=== PATIENT | male | born 1960 | race Hispanic/Latino ===

== ENCOUNTER 2019-10-09 11:54 | Observation (INO) | payer OTHER ==
[2019-10-06 16:27] VITALS: BP 156/78
[2019-10-06 16:38] LABS: BASOPHILS % (AUTO) 1.2 % (0.0-5.0); EOSINOPHILS % (AUTO) 2.2 % (0.0-8.0); HEMATOCRIT 39.5 % (42-54); LYMPHOCYTES % (AUTO) 19.3 % (21.0-51.0); MEAN CORPUSCULAR HEMOGLOBIN 29.4 pg (27.0-33.0); MEAN CORPUSCULAR VOLUME 88.8 fL (79-99); MONOCYTES % (AUTO) 9.5 % (3.0-13.0); NEUTROPHILS % (AUTO) 67.8 % (40.0-77.0); NUCLEATED RED BLOOD CELLS 0.1 % (0.0-0.19); PLATELET COUNT (AUTO) 116 K/uL (130-400); RED BLOOD CELL COUNT(AUTO) 4.45 MIL/uL (4.50-6.20); RED CELL DISTRIBUTION WIDTH 15.1 % (11.0-15.5); WHITE BLOOD COUNT (AUTO) 4.2 K/uL (4.8-10.8)
[2019-10-06 16:43] LABS: APPEARANCE,URINE CLEAR (CLEAR); BILIRUBIN,URINE NEGATIVE (NEGATIVE); COLOR,URINE YELLOW (YELLOW); GLUCOSE, URINE (UA) >=1000 mg/dL (NEGATIVE); KETONES,URINE NEGATIVE (NEGATIVE); LEUKOCYTE ESTERASE ,URINE NEGATIVE (NEGATIVE); NITRATE,URINE NEGATIVE (NEGATIVE); OCCULT BLOOD,URINE TRACE-INTACT (NEGATIVE); PROTEIN,URINE >=300 mg/dL (NEGATIVE); UROBILINOGEN,URINE 0.2 mg/dL (0.2-1.0)
[2019-10-06 16:54] LABS: INR 0.96 (0.85-1.15); PARTIAL THROMBOPLASTIN TIME 30.6 SEC (26.3-35.5); PROTHROMBIN TIME 10.1 SEC (9.6-11.6)
[2019-10-06 16:56] LABS: CREATININE 8.4 mg/dL (0.5-1.5)
[2019-10-06 17:23] LABS: BACTERIA,URINE Rare /HPF (None Seen); RBC,URINE 0-1 /HPF (0-1); WBC,URINE 0-1 /HPF (0-1)
[2019-10-06 17:24] LABS: SQUAMOUS EPITHELIAL CELL,UR None Seen /HPF (0-2)
--- NOTE | 2019-10-08 12:00 | NUR ---
Called Gadiel Tinoco and notified him if na of 133 and cl of 95, no new orders, okay to proceed. Addendum: 10/08/19 at 1246 by JANET HAILE RN RN wrong patient , no correct account
--- NOTE | 2019-10-08 12:57 | NUR ---
Called Gadiel Thomas to advise him that pt urine has protien, glucose , trace of blood , plt morphology shows plt clumps present, large plts present , Bun 62, metal loader 8.4 (pt peritoneal dialysis pt with gfr of 7) and chest xray shows right pleural fluid. Per Gadiel Thomas okay to proceed no new orders.
[2019-10-09] VITALS (9 sets, daily range): BP systolic 144–175; BP diastolic 79–92
[~2019-10-09] VITALS: Ht 175.3 cm; Wt 65.8 kg
[~2019-10-09 11:54] MED LIST: SODIUM CHLORIDE 0.9% 1000ML 1,000 ML IV ONE
[2019-10-09] MEDS ORDERED: TRAZ-185 PO (13:53)
[2019-10-09] MEDS ORDERED: HYDR-3421 PO (13:53)
[2019-10-09] MEDS ORDERED: INSU100I26 SQ (13:53)
[2019-10-09] MEDS ORDERED: FURO20TA4 PO (13:53)
[2019-10-09] MEDS ORDERED: RENAVITE PO (13:53)
[2019-10-09] MEDS ORDERED: NIFE60TA71 PO (13:53)
[2019-10-09] MEDS ORDERED: ZOLP5TAB8 PO (13:53)
[2019-10-09] MEDS ORDERED: OMEP20TA25 PO (13:53)
[2019-10-09] MEDS ORDERED: SEVE800T27 PO (13:53)
[2019-10-09] MEDS ORDERED: LOSA100T58 PO (13:53)
[2019-10-09] MEDS ORDERED: AMLO10TA7 PO (13:53)
[2019-10-09] MEDS ORDERED: SIMV-46 PO (13:53)
[2019-10-09] MEDS ORDERED: CEPH500T PO (13:53)
[2019-10-09] MEDS ORDERED: IODIXANOL 320 MG/ML 100 ML VIAL ONE (15:15)
[2019-10-09] MEDS ORDERED: FENTANYL CITRATE PF 50 MCG/1 ML 2ML VIAL ONE (15:15)
[2019-10-09] MEDS ORDERED: HEPARIN SODIUM 1000UNIT/ML 10ML VIAL ONE (15:15)
[2019-10-09] MEDS ORDERED: NITROGLYCERIN 5 MG/ML 10 ML VIAL IV ONE (15:15)
[2019-10-09] MEDS ORDERED: LIDOCAINE HCL 2% 20ML ONE (15:15)
[2019-10-09] MEDS ORDERED: MIDAZOLAM HCL 1 MG/ML 2ML VIAL ONE (15:15)
[2019-10-09] MEDS ORDERED: DEXTROSE 50%-WATER 50 ML DISP.SYRIN IV ONE (16:09)
[2019-10-09] MEDS ORDERED: LABETALOL 20 MG/4 ML DISP.SYRIN IV ONE (16:53)
[2019-10-09] MEDS ORDERED: CLOPIDOGREL BISULFATE 300 MG TAB ONE (17:03)
[2019-10-09] MEDS ORDERED: ASPIRIN 81MG TAB.CHEW ONE ×2 (17:03→17:05)
[2019-10-09] MEDS ORDERED: GLUCAGON 1MG KIT 1 MG ML IM PRN (17:15)
[2019-10-09] MEDS ORDERED: DEXTROSE 50%-WATER 50 ML DISP.SYRIN IV PRN (17:15)
[2019-10-09] MEDS ORDERED: ACETAMINOPHEN-CODEINE 300/30MG TAB PO PRN (17:15)
[2019-10-09] MEDS ORDERED: HYDRALAZINE HCL 20 MG/ML VIAL IV PRN (17:15)
[2019-10-09] MEDS ORDERED: METOPROLOL TARTRATE 1 MG/ML 5ML VIAL IV PRN (17:15)
[2019-10-09] MEDS ORDERED: PHARMACY COMMUNICATION MISC SCH (20:00)
[2019-10-09] MEDS: INSULIN HUMULIN R 100 UNIT/ML 3ML SQ SCH (20:19)
[2019-10-09] MEDS ORDERED: ZOLPIDEM TARTRATE 5 MG TAB PO SCH (21:00)
[2019-10-09] MEDS ORDERED: SIMVASTATIN 20 MG TABLET PO SCH (21:00)
[2019-10-09] MEDS ORDERED: TRAZODONE HCL 50 MG TAB PO SCH (21:00)
[2019-10-09] MEDS ORDERED: LOSARTAN 100 MG TABLET PO SCH (21:00)
[2019-10-09] MEDS ORDERED: HYDROXYZINE HCL 25 MG TABLET PO SCH (21:00)
[2019-10-09] MEDS: SEVELAMER HCL 800 MG TABLET PO SCH (21:11)
[2019-10-09] MEDS: CEPHALEXIN 500 MG CAPSULE PO SCH (21:11)
[2019-10-10] VITALS: BP 151/81
[2019-10-10 04:00] VITALS: BP 153/84
[2019-10-10 05:05] LABS: HEMATOCRIT 33.4 % (42-54); MEAN CORPUSCULAR HEMOGLOBIN 29.4 pg (27.0-33.0); MEAN CORPUSCULAR HGB CONC 33.4 g/dL (32.0-36.0); MEAN CORPUSCULAR VOLUME 88.1 fL (79-99); NUCLEATED RED BLOOD CELLS 0.1 % (0.0-0.19); PLATELET COUNT (AUTO) 105 K/uL (130-400); RED BLOOD CELL COUNT(AUTO) 3.79 MIL/uL (4.50-6.20); RED CELL DISTRIBUTION WIDTH 15.2 % (11.0-15.5); WHITE BLOOD COUNT (AUTO) 3.7 K/uL (4.8-10.8)
[2019-10-10 05:37] LABS: POTASSIUM 5.2 mmol/L (3.5-5.1)
[2019-10-10 05:40] LABS: CREATININE 8.9 mg/dL (0.5-1.5)
[2019-10-10] MEDS: INSULIN HUMULIN R 100 UNIT/ML 3ML SQ SCH ×2 (06:24→11:45)
--- NOTE | 2019-10-10 07:30 | NUR ---
pt was noted to have blood on the front of his gown, a clot seems to have oozed out from under current dressing; i removed the optifoam cover and a small amount of blood oozing is noted; i folded and placed several clean 4x4 gauze on right groin site and clear opsite dressing and made it tight for a pressure dressing; will cont to monitor.
[2019-10-10 08:00] VITALS: BP 178/87
[2019-10-10] MEDS: SEVELAMER HCL 800 MG TABLET PO SCH ×2 (08:32→11:43)
[2019-10-10] MEDS: CEPHALEXIN 500 MG CAPSULE PO SCH (08:32)
[2019-10-10] MEDS ORDERED: FUROSEMIDE 20 MG TABLET PO SCH (09:00)
[2019-10-10] MEDS ORDERED: NIFEDIPINE ER 30 MG TAB PO SCH (09:00)
[2019-10-10] MEDS ORDERED: AMLODIPINE BESYLATE 5 MG TAB PO SCH (09:00)
[2019-10-10] MEDS ORDERED: PANTOPRAZOLE SODIUM 40 MG TABLET.DR PO SCH (09:00)
[2019-10-10] MEDS ORDERED: INSULIN GLARGINE 100 UNITS/ML 10 ML VIAL SQ SCH (09:00)
[2019-10-10] MEDS ORDERED: FOLIC ACID/VITAMIN B COMP W-C 1 MG CAP/TAB PO SCH (09:00)
[2019-10-10] MEDS ORDERED: CLOPIDOGREL BISULFATE 75 MG TAB PO SCH (09:00)
--- NOTE | 2019-10-10 09:00 | NUR ---
pt has a 1/4 of the gauze pressure dressing i applied w/ bloody drainage on it; i have spoken to dr Sandhya Cochran on the phone and he stated to hold d/c till he can come see the patient and assess. pt informed of this and is in agreement.
--- NOTE | 2019-10-10 10:15 | NUR ---
stay dry dressing applied to right groin to stop bleeding; pt did have a small amount of oozing noted when dressings changed; pt instructed on bedrest and limited activity for a few days and if large amount of bleeding noted to report to md or go to ed; pt stated understanding of all instructions.
[2019-10-10 11:38] VITALS: BP 163/79
--- NOTE | 2019-10-10 12:09 | NUR ---
pt and stated understanding of all d/c instructions for after care for balloning and stenting and use of new meds plavix and aspirin; dressing to right groin remains clean dry and intact; i have discussed with pt how to watch it and home and reinforce if necessary and to report to md excessive drainage, i have also discussed limiting activity for 5 days and calling Saturday for follow up's w/ Dimas and pcp. iv access removed pt taken downstairs via wheelchair.
== END 2019-10-10 12:15 | disposition home or self-care (01) ==
LOC: DAH 11:54 → 4BH 11:55 → DAH 17:05
PROVIDERS: ADMIT Internal Medicine Cardiovascular Disease; ATTEND Internal Medicine Cardiovascular Disease
DX: E11.51 Type 2 diabetes mellitus with diabetic peripheral angiopathy without gangrene (principal); I87.2 Venous insufficiency (chronic) (peripheral); E11.22 Type 2 diabetes mellitus with diabetic chronic kidney disease; E11.21 Type 2 diabetes mellitus with diabetic nephropathy; N18.6 End stage renal disease; E11.40 Type 2 diabetes mellitus with diabetic neuropathy, unspecified; I25.10 Atherosclerotic heart disease of native coronary artery without angina pectoris; Z79.899 Other long term (current) drug therapy; Z95.828 Presence of other vascular implants and grafts; Z99.2 Dependence on renal dialysis
CPT/HCPCS: 36415 ×2; 37226; 71045; 75630; 75774; 80048 ×2; 81001; 82948 ×6; 85025; 85027; 85610; 85730; 93005; 96372; A4215; A4216; A4221; A4222; A4223 ×3; A4606; A4663; C1725; C1760; C1769 ×2; C1874; C1887; C1893; C1894 ×2; G0378 ×19; J1644 ×2; J1815; J2250; J3010; J3490 ×2; J7030; J7070; Q9967; 75716; 99156; 99157

== ENCOUNTER 2019-12-21 06:08 | Observation (INO) | payer MEDICARE ==
[2019-12-17 13:35] LABS: BASOPHILS % (AUTO) 1.1 % (0.0-5.0); EOSINOPHILS % (AUTO) 4.2 % (0.0-8.0); HEMATOCRIT 40.3 % (42-54); LYMPHOCYTES % (AUTO) 13.4 % (21.0-51.0); MEAN CORPUSCULAR HEMOGLOBIN 28.2 pg (27.0-33.0); MEAN CORPUSCULAR HGB CONC 30.8 g/dL (32.0-36.0); MEAN CORPUSCULAR VOLUME 91.6 fL (79-99); NEUTROPHILS % (AUTO) 71.9 % (40.0-77.0); PLATELET COUNT (AUTO) 124 K/uL (130-400); RED CELL DISTRIBUTION WIDTH 15.5 % (11.0-15.5); WHITE BLOOD COUNT (AUTO) 4.8 K/uL (4.8-10.8)
[2019-12-17 13:45] LABS: PARTIAL THROMBOPLASTIN TIME 31.3 SEC (26.3-35.5); PROTHROMBIN TIME 10.5 SEC (9.6-11.6)
[2019-12-17 13:46] LABS: POTASSIUM 5.5 mmol/L (3.5-5.1)
[2019-12-17 13:48] VITALS: BP 152/84
[2019-12-17 13:48] LABS: CREATININE 10.1 mg/dL (0.5-1.5)
--- NOTE | 2019-12-17 16:45 | NUR ---
RE: ABNORMAL LABS CALLED [facility] AND REPORTED ABNORMAL XRAY (SMALL RIGHT PLEURAL EFFUSION). NO NEW ORDERS RECEIVED.
--- NOTE | 2019-12-17 16:45 | NUR ---
RE: ABNORMAL LABS CALLED [facility] AND INFORMED HIM OF PATIENT'S LABS BUN 80, CREAT 10.1, HGB 12.4, HCT 40.3, K 5.5, CA 7.2. PER CATHRYN, FAX THE LAB RESULT TO PATIENT'S WEB PRODUCTION ARTIST AND CALL IN PRESCRIPTION FOR KAYEXALATE TO THE PHARMACY FOR PATIENT TO SALES PROMOTION MANAGER, REPEAT BMP IN AM OF PROCEDURE.
--- NOTE | 2019-12-17 17:00 | NUR ---
RE: PRESCRIPTION CALLED [facility] IN [place] AND LEFT MESSAGE/VOICE MAIL FOR PRESCRIPTION FOR KAYEXELATE FOR PATIENT
--- NOTE | 2019-12-18 13:00 | NUR ---
LABS (BMP/CBC) FAXED TO DR GARCIA OFFICE FOR REVIEW ([phone])
--- NOTE | 2019-12-18 13:15 | NUR ---
RE: PRESCRIPTION CALLED PATIENT AND LEFT MESSAGE TO INFORM HIM THAT KAYEXELATE WAS CALLED INTO [facility] FOR HIM
[~2019-12-21] VITALS: Ht 172.7 cm; Wt 68.3 kg
[2019-12-21] VITALS (15 sets, daily range): BP systolic 141–173; BP diastolic 50–88
[~2019-12-21 06:08] MED LIST changes: +AEC81 PO; +AMLO10TA7 PO; +CALC0.253 PO; +CLOP75TA32 PO; +FURO20TA4 PO; +HYDR-3421 PO; +INSU100I26 SQ; +IRON1CAP PO; +LOSA100T58 PO; +OMEP40CA13 PO; +RENAVITE PO; +SEVE800T27 PO; +SIMV-46 PO; -SODIUM CHLORIDE 0.9% 1000ML 1,000 ML IV ONE; +SODIUM CHLORIDE 0.9% 500ML 500 ML IV SCH; +TRAZ-185 PO
[2019-12-21 06:56] LABS: POTASSIUM 4.3 mmol/L (3.5-5.1)
[2019-12-21 07:03] LABS: CREATININE 9.3 mg/dL (0.5-1.5)
[2019-12-21 07:30] LABS: APPEARANCE,URINE CLEAR (CLEAR); BILIRUBIN,URINE NEGATIVE (NEGATIVE); COLOR,URINE YELLOW (YELLOW); GLUCOSE, URINE (UA) 500 mg/dL (NEGATIVE); KETONES,URINE NEGATIVE (NEGATIVE); LEUKOCYTE ESTERASE ,URINE NEGATIVE (NEGATIVE); NITRATE,URINE NEGATIVE (NEGATIVE); OCCULT BLOOD,URINE TRACE-INTACT (NEGATIVE); PH,URINE 7.5 (5.0-8.0); PROTEIN,URINE 100 mg/dL (NEGATIVE); UROBILINOGEN,URINE 0.2 mg/dL (0.2-1.0)
[2019-12-21 07:48] LABS: BACTERIA,URINE Rare /HPF (None Seen); SQUAMOUS EPITHELIAL CELL,UR Rare /HPF (0-2); WBC,URINE 0-1 /HPF (0-1)
[2019-12-21] MEDS ORDERED: NITROGLYCERIN 2 MG/VIAL VIAL IV ONE (08:00)
[2019-12-21] MEDS ORDERED: HEPARIN SODIUM 1000UNIT/ML 10ML VIAL ONE (08:00)
[2019-12-21] MEDS ORDERED: IODIXANOL 320 MG/ML 100 ML VIAL ONE (08:01)
[2019-12-21] MEDS ORDERED: LIDOCAINE HCL 2% 20ML ONE (08:01)
[2019-12-21] MEDS ORDERED: FENTANYL CITRATE PF 50 MCG/1 ML 2ML VIAL ONE (08:19)
[2019-12-21] MEDS ORDERED: MIDAZOLAM HCL 1 MG/ML 2ML VIAL ONE (08:19)
[2019-12-21] MEDS: AMLODIPINE BESYLATE 5 MG TAB PO SCH (09:00)
[2019-12-21] MEDS ORDERED: GLUCAGON 1MG KIT 1 MG ML IM PRN (09:15)
[2019-12-21] MEDS ORDERED: DEXTROSE 50%-WATER 50 ML DISP.SYRIN IV PRN (09:15)
[2019-12-21] MEDS ORDERED: HYDRALAZINE HCL 20 MG/ML VIAL IV PRN (09:15)
[2019-12-21] MEDS ORDERED: NITROGLYCERIN 0.4 MG SL TAB SL PRN (09:15)
[2019-12-21] MEDS: FOLIC ACID/VITAMIN B COMP W-C 1 MG CAP/TAB PO SCH ×2 (09:29→20:33)
[2019-12-21] MEDS ORDERED: TRAZODONE HCL 50 MG TAB PO PRN (09:30)
[2019-12-21] MEDS ORDERED: CALCITRIOL 0.25 MCG CAPSULE PO SCH (09:30)
[2019-12-21] MEDS: PANTOPRAZOLE SODIUM 40 MG TABLET.DR PO SCH (09:30)
[2019-12-21] MEDS: FE FUMARATE/FA/MV, MIN COMB#15 1 TAB PO SCH (09:31)
[2019-12-21] MEDS ORDERED: ATROPINE SULFATE 0.1 MG/ML 10 ML SYG IVP ONE (11:10)
[2019-12-21] MEDS: INSULIN HUMULIN R 100 UNIT/ML 3ML SQ SCH ×3 (11:30→20:48)
[2019-12-21 12:46] LABS: HEMATOCRIT 36.2 % (42-54)
--- NOTE | 2019-12-21 14:51 | NUR ---
IR/SCHEDULING SPOKE TO JENISE IN IR- STATED IR MD WILL DO PROCEDURE IN AM
[2019-12-21] MEDS ORDERED: LOPERAMIDE 1 MG/7.5 ML UDCUP PO PRN (15:30)
[2019-12-21] MEDS ORDERED: LOPERAMIDE HCL 2 MG CAP PO PRN (15:45)
[2019-12-21] MEDS: SEVELAMER HCL 800 MG TABLET PO SCH ×2 (17:39→20:35)
[2019-12-21] MEDS: CLOPIDOGREL BISULFATE 75 MG TAB PO SCH ×2 (20:36→23:53)
--- NOTE | 2019-12-21 20:37 | NUR ---
PLAVIX PLAVIX NOT GIVEN PT ANGELA BE GOING FOR PROCEDURE IN AM Addendum: 12/21/19 at 5313 by MARLON CUELLAR RN RN wrong pt-plavix given s/p stent
--- NOTE | 2019-12-21 20:43 | NUR ---
TERESA Sagastume Rn from IR called and said pt is going for US guided pseudoaneurysm repair at 0800 tomorrow.
[2019-12-21] MEDS ORDERED: SIMVASTATIN 20 MG TABLET PO SCH (21:00)
[2019-12-21] MEDS ORDERED: HYDROXYZINE HCL 25 MG TABLET PO SCH (21:00)
[2019-12-21] MEDS ORDERED: LOSARTAN 100 MG TABLET PO SCH (21:00)
--- NOTE | 2019-12-21 23:57 | NUR ---
BATH Pt bathed per director sales and trade marketing.
[2019-12-22 00:07] VITALS: BP 139/66
--- NOTE | 2019-12-22 00:39 | NUR ---
ANXIOUS Pt awake,sitting up on a chair,states he's anxious about the procedure in am.
[2019-12-22 03:52] VITALS: BP 137/71
[2019-12-22] MEDS: PANTOPRAZOLE SODIUM 40 MG TABLET.DR PO SCH (05:14)
[2019-12-22] MEDS: INSULIN HUMULIN R 100 UNIT/ML 3ML SQ SCH ×2 (05:51→11:30)
--- NOTE | 2019-12-22 05:52 | NUR ---
SLEEP Pt appears to slept fairly,eyes closed.Respirations even and unlabored.
[2019-12-22 08:24] VITALS: BP 151/88
[2019-12-22] MEDS: AMLODIPINE BESYLATE 5 MG TAB PO SCH (08:54)
[2019-12-22] MEDS: FOLIC ACID/VITAMIN B COMP W-C 1 MG CAP/TAB PO SCH (08:54)
[2019-12-22] MEDS: SEVELAMER HCL 800 MG TABLET PO SCH ×2 (08:55→08:59)
[2019-12-22] MEDS: FE FUMARATE/FA/MV, MIN COMB#15 1 TAB PO SCH (08:55)
[2019-12-22] MEDS ORDERED: ASPIRIN 81 MG EC TAB PO SCH (09:00)
[2019-12-22] MEDS ORDERED: FUROSEMIDE 20 MG TABLET PO SCH (09:00)
--- NOTE | 2019-12-22 09:43 | NUR ---
PROCEDURE PATIENT SCHEDULED FOR RT GROIN PSEUDO ANEURYSM REPAIR WITH THROMBIN INJECTION. NO CURRENT IMAGES TAKEN AND DR Fede CHARLES NOTIFIED. STAT RT GROIN SOFT TISSUE ULTRASOUND ORDERED AT 0930 AND RESULTED AT 0945. THROMBOSED RT GROIN PSEUDO ANEURYSM WITH NO FLOW SEEN. DR Fede PACE NOTIFIED WITH RESULTS. NO FURTHER INTERVENTION REQUIRED AND PROCEDURE CANCELLED. PROCEDURE OUTCOME REPORTED TO WARREN LAN.
[2019-12-22 10:06] LABS: POTASSIUM 5.9 mmol/L (3.5-5.1)
[2019-12-22 10:09] LABS: CREATININE 10.7 mg/dL (0.5-1.5)
[2019-12-22] MEDS ORDERED: SODIUM POLYSTYRENE SULFONATE 15 GM/60 ML ML PO SCH (10:30)
[2019-12-22] MEDS ORDERED: SODIUM POLYSTYRENE SULFONATE 15 GM/60 ML ML ONE (10:46)
[2019-12-22 10:59] VITALS: BP 144/85
--- NOTE | 2019-12-22 14:46 | NUR ---
2530 patient signed SOTELO Letter.I faxed SOTELO Letter to [phone] and placed in chart under consent tab
[2019-12-23] MEDS ORDERED: INSULIN GLARGINE 100 UNITS/ML 10 ML VIAL SQ SCH (09:00)
== END 2019-12-22 12:54 | disposition home or self-care (01) ==
LOC: DAH 06:08 → INTOOBSV 06:09 → DAH 06:09 → DAHIP 06:09 → 4DH 13:33
PROVIDERS: ADMIT Internal Medicine; ATTEND Internal Medicine
DX: E11.51 Type 2 diabetes mellitus with diabetic peripheral angiopathy without gangrene (principal); I70.201 Unspecified atherosclerosis of native arteries of extremities, right leg; I87.2 Venous insufficiency (chronic) (peripheral); R19.09 Other intra-abdominal and pelvic swelling, mass and lump; M79.89 Other specified soft tissue disorders; E11.22 Type 2 diabetes mellitus with diabetic chronic kidney disease; N18.6 End stage renal disease; I25.10 Atherosclerotic heart disease of native coronary artery without angina pectoris; I72.8 Aneurysm of other specified arteries; Z99.2 Dependence on renal dialysis
CPT/HCPCS: 36415 ×3; 37224; 71045; 75716; 75774; 76882; 80048 ×3; 81001; 82948 ×5; 85014; 85018; 85025; 85347; 85610; 85730; 93005; 96372; A4215; A4216; A4221; A4222; A4223 ×3; A4606; A4663; C1725; C1769 ×2; C1887; C1893; C1894 ×2; G0378 ×20; J1644 ×2; J1815; J2250; J3010; J3490 ×2; Q9967; 99156; 99157; J0461

== ENCOUNTER → 2020-02-26 | Outpatient (CLI) | payer MEDICARE ==
[~2020-02-26] MED LIST changes: -SODIUM CHLORIDE 0.9% 500ML 500 ML IV SCH
== END | disposition home or self-care (01) ==
LOC: SHCH 12:05
PROVIDERS: ATTEND Internal Medicine Cardiovascular Disease
DX: I73.9 Peripheral vascular disease, unspecified (principal)
CPT/HCPCS: 93925

== ENCOUNTER 2020-03-17 05:48 | Day surgery (SDC) | payer MEDICARE ==
[2020-03-17] VITALS (19 sets, daily range): BP systolic 124–174; BP diastolic 67–87
[~2020-03-17 05:48] MED LIST changes: -SEVE800T27 PO
[2020-03-17 06:23] LABS: BASOPHILS % (AUTO) 0.6 % (0.0-5.0); EOSINOPHILS % (AUTO) 1.8 % (0.0-8.0); HEMATOCRIT 36.4 % (42-54); LYMPHOCYTES % (AUTO) 16.2 % (21.0-51.0); MEAN CORPUSCULAR HEMOGLOBIN 29.8 pg (27.0-33.0); MEAN CORPUSCULAR HGB CONC 31.6 g/dL (32.0-36.0); MEAN CORPUSCULAR VOLUME 94.3 fL (79-99); MONOCYTES % (AUTO) 9.4 % (3.0-13.0); NEUTROPHILS % (AUTO) 71.8 % (40.0-77.0); PLATELET COUNT (AUTO) 104 K/uL (130-400); RED BLOOD CELL COUNT(AUTO) 3.86 MIL/uL (4.50-6.20)
--- NOTE | 2020-03-17 06:25 | NUR ---
PRE-PROCEDURE RECEIVED FROM HOME TO DAY PT 8 FOR SCHEDULED PROCEDURE WITH DR. ORELLANA. PT AWAKE IN NO ACUTE DISTRESS. CONNECTED TO CONTINUOUS CARDIOPULMONARY MONITORING. C/O PAIN TO RIGHT LOWER EXTREMITY 4/10, BUT REPORTS HE HAS HAD PAIN FOR THE PAST 3 WEEKS MORE SEVERE WHEN WALKING. PT DOES PERITONEAL DIALYSIS FOR 8 HOURS DURING THE NIGHT. MULTIPLE WOUNDS TO RLE WITH OPEN WOUND TO ANTERIOR PART OF FOOT/DRESSING IN PLACE. PER PT HE HAS BEEN TAKING ANTIBIOTICS PRESCRIBED BY DIALYSIS MD.
[2020-03-17 06:39] LABS: INR 1.02 (0.85-1.15); PARTIAL THROMBOPLASTIN TIME 37.7 SEC (26.3-35.5); POTASSIUM 4.9 mmol/L (3.5-5.1)
[2020-03-17 06:44] LABS: APPEARANCE,URINE Clear (CLEAR); BILIRUBIN,URINE Negative (NEGATIVE); COLOR,URINE Yellow (YELLOW); GLUCOSE, URINE (UA) TRACE mg/dL (NEGATIVE); KETONES,URINE Negative (NEGATIVE); LEUKOCYTE ESTERASE ,URINE Negative (NEGATIVE); NITRATE,URINE Negative (NEGATIVE); OCCULT BLOOD,URINE Negative (NEGATIVE); PH,URINE 8.5 (5.0-8.0); PROTEIN,URINE 300 mg/dL (NEGATIVE); UROBILINOGEN,URINE 0.2 mg/dL (0.2-1.0)
[2020-03-17 06:57] LABS: BACTERIA,URINE Rare /HPF (None Seen); SQUAMOUS EPITHELIAL CELL,UR Rare /HPF (0-2); WBC,URINE 0-1 /HPF (0-1)
[2020-03-17 06:57] LABS: CREATININE 12.6 mg/dL (0.5-1.5)
[2020-03-17] MEDS ORDERED: IODIXANOL 320 MG/ML 100 ML VIAL ONE (07:14)
[2020-03-17] MEDS ORDERED: NITROGLYCERIN 2 MG/VIAL VIAL IV ONE (07:14)
[2020-03-17] MEDS ORDERED: HEPARIN SODIUM 1000UNIT/ML 10ML VIAL ONE (07:14)
[2020-03-17] MEDS ORDERED: FENTANYL CITRATE PF 50 MCG/1 ML 2ML VIAL ONE (07:15)
[2020-03-17] MEDS ORDERED: MIDAZOLAM HCL 1 MG/ML 2ML VIAL ONE (07:15)
[2020-03-17] MEDS ORDERED: LIDOCAINE HCL 2% 20ML ONE (07:16)
--- NOTE | 2020-03-17 07:25 | NUR ---
PROCEDURE TRANSFERRED TO FOREST AIDE VIA BED AWAKE IN NO ACUTE DISTRESS BY DANYELL LUNA RN.
[2020-03-17] MEDS ORDERED: PANT40SU PO (07:40)
[2020-03-17] MEDS ORDERED: TRAM50TA4 PO (07:41)
[2020-03-17] MEDS ORDERED: CELE200C PO (07:44)
[2020-03-17] MEDS ORDERED: CLIN300C9 PO (07:44)
[2020-03-17] MEDS ORDERED: FERS325 PO (07:44)
[2020-03-17] MEDS ORDERED: CLOPIDOGREL BISULFATE 75 MG TAB ONE (09:26)
[2020-03-17] MEDS ORDERED: LABETALOL 20 MG/4 ML DISP.SYRIN IV ONE (09:26)
[2020-03-17] MEDS ORDERED: DEXTROSE 50%-WATER 50 ML DISP.SYRIN IV PRN (09:30)
[2020-03-17] MEDS ORDERED: NITROGLYCERIN 0.4 MG SL TAB SL PRN (09:30)
[2020-03-17] MEDS ORDERED: GLUCAGON 1MG KIT 1 MG ML IM PRN (09:30)
[2020-03-17] MEDS ORDERED: HYDRALAZINE HCL 20 MG/ML VIAL IV PRN (09:30)
--- NOTE | 2020-03-17 09:55 | NUR ---
POST-PROCEDURE RECEIVED FROM LEAD SEWAGE PLANT OPERATOR VIA BED BY JAYNE BANDA RN. AWAKE IN NO ACUTE DISTRESS. DENIES PAIN. EDUCATED ON PATIENT ON BEDREST, IMPORTANCE OF KEEPING LEFT LEG STRAIGHT AND HEAD FLAT, NPO UNTIL LINE PULLED AT 1230. PT VERBALIZED UNDERSTANDING. 6F SHEATH TO LEFT FEMORAL;DSG DRY AND INTACT; HEPARIN INFUSING VIA PRESSURE BAG.
[2020-03-17] MEDS ORDERED: INSULIN HUMULIN R 100 UNIT/ML 3ML SQ SCH (11:30)
--- NOTE | 2020-03-17 13:00 | NUR ---
POST-PROCEDURE 6FRENCH FEMORAL SHEATH PULLED BY WARREN CONDE USING DSTAT. TOLERATED W/O COMPLICATIONS. WILL CONTINUE TO MONITOR CATH SITE. REINFORCED WITH PT NOT TO MOVE LEFT LEG OR RAISE HEAD. PT VERBALIZED UNDERSTANDING.
--- NOTE | 2020-03-17 13:44 | NUR ---
DIET ATE 100% OF LUNCH.
--- NOTE | 2020-03-17 15:57 | NUR ---
REPORT REPORT GIVEN TO WARREN PATEL USING SBAR. CATH SITE CHECKED NO SIGNS OF BLEEDING, D-STAT DRESSING CD&I, SITE SOFT, NON-TENDER. AWAKE IN NO ACUTE DISTRESS.
--- NOTE | 2020-03-17 16:40 | NUR ---
PT STABLE, AAOX3. NO C/O PAIN TO LT GROIN. DSTAT INTACT. NO ACTIVE BLEEDING OR HEMATOMA. PT STATES HE HAS MILD PAIN TO R LLE. INSTRUCTED PT TO TAKE TYLENOL FOR PAIN, IF UN TOLERABLE CALL DR. ORELLANA'S OFFICE FOR FURTHER INSTRUCTIONS. PT INSTRUCTIONS GIVEN TO , AND PRESCRIPTION. BOTH VERBALIZED UNDERSTANDING. PT DRESSED WITH ASSISTANCE, IV D/C, PT TAKEN OUT TO CAR IN WHEELCHAIR, DRIVEN HOME BY .
== END 2020-03-17 16:40 | disposition home or self-care (01) ==
LOC: DAH 05:48
PROVIDERS: ATTEND Internal Medicine Cardiovascular Disease
DX: I70.221 Atherosclerosis of native arteries of extremities with rest pain, right leg (principal); E11.51 Type 2 diabetes mellitus with diabetic peripheral angiopathy without gangrene; E11.621 Type 2 diabetes mellitus with foot ulcer; E11.40 Type 2 diabetes mellitus with diabetic neuropathy, unspecified; I10 Essential (primary) hypertension; E78.5 Hyperlipidemia, unspecified; I87.2 Venous insufficiency (chronic) (peripheral); Z79.01 Long term (current) use of anticoagulants; Z79.899 Other long term (current) drug therapy
CPT/HCPCS: 36415; 37226; 37228; 71045; 75710; 80048; 81001; 82948 ×3; 85025; 85610; 85730; 93005; A4215; A4216; A4221; A4222; A4223 ×3; A4606; A4663; C1725 ×3; C1769 ×2; C1874 ×2; C1893; C1894 ×2; J1644 ×2; J2250; J3010; J3490 ×2; Q9967; 99156; 99157